=== PATIENT | female | born 1955 | race Caucasian/White ===

== ENCOUNTER 2022-12-05 01:36 | Emergency (ER) | payer OTHER ==
[~2022-12-05] VITALS: Ht 165.1 cm; Wt 68.9 kg
--- NOTE | 2022-12-05 02:00 | NUR ---
ER Dr. MANRIQUE at bedside examining patient.
--- NOTE | 2022-12-05 02:00 | NUR ---
PATIENT TAKING SENSIPAR AND HAVING BODY NUMBNESS/TINGLING X2 DAYS, HY Addendum: 12/05/22 at 0230 by [email or web address] X2 WEEKS*
--- NOTE | 2022-12-05 02:00 | NUR ---
PT BIB FROM HOME, AMBULATED TO BED 8. PT C/O TINGLING AND NUMBNESS TO FINGER TIPS DUE TO STARTING A NEW MEDICATION 2-3 WEEKS AGO. PT DENIES SOB OR CHEST PAIN. PT DENIES N/V/D, FEVER AND CHILLS. PT STATES FEELING "WEAK." NEW MEDICATION NAME CINACALET HCL 60MG BID. SAFETY PRECAUTIONS IN PLACE.
[2022-12-05 02:01] VITALS: BP_SYST 135; PULSE 78; RESP 16; TEMP 98; O2SAT 96
--- NOTE | 2022-12-05 02:01 | NUR ---
PATIENT PLACED IN ED BED 8, REPORT GIVEN TO BENJI Addendum: 12/05/22 at 0231 by [email or web address] REPORT GIVEN TO IFEANYI
[2022-12-05] MEDS ORDERED: NACL 0.9% 1,000 ML IV ONE (02:30)
[2022-12-05 02:41] LABS: BASOPHILS % (AUTO) 0.4 % (0.0-2.0); EOSINOPHILS # (AUTO) 0.1 K/uL (0.0-0.4); EOSINOPHILS % (AUTO) 0.8 % (0.0-4.0); HEMATOCRIT 36.9 % (36-48); HEMOGLOBIN 12.3 g/dL (12.0-16.0); LYMPHOCYTES # (AUTO) 1.6 K/uL (1.0-5.5); LYMPHOCYTES % (AUTO) 20.1 % (20.5-51.5); MEAN CORPUSCULAR HEMOGLOBIN 30 pg (27-31); MEAN CORPUSCULAR HGB CONC 33 % (32-36); MEAN CORPUSCULAR VOLUME 89 fL (79.0-98.0); MONOCYTES # (AUTO) 0.7 K/uL (0.0-1.0); MONOCYTES % (AUTO) 8.7 % (1.7-9.3); NEUTROPHILS # (AUTO) 5.5 K/uL (1.8-7.7); PLATELET COUNT (AUTO) 265 K/uL (130-430); RED BLOOD CELL COUNT(AUTO) 4.14 MIL/uL (4.2-6.2); RED CELL DISTRIBUTION WIDTH 13.9 % (9.0-15.0); WHITE BLOOD COUNT (AUTO) 7.8 K/uL (4.8-10.8)
[2022-12-05 03:13] LABS: ALANINE AMINOTRANSFERASE 34 U/L (12-78); ALBUMIN 3.8 g/dL (3.4-4.8); ANION GAP 10 (5-15); ASPARTATE AMINOTRANSFERASE 36 U/L (10-37); CHLORIDE 100 mmol/L (98-107); CREATININE 0.68 mg/dL (0.55-1.30); FREE T4 (FREE THYROXINE) 0.9 ng/dL (0.6-1.6); GFR AFRICAN AMERICAN 111 mL/min (>90); GLUCOSE 111 mg/dL (74-106); PHOSPHORUS 3.9 mg/dL (2.7-4.5); TOTAL BILIRUBIN 0.3 mg/dL (0.0-1.0); UREA NITROGEN, BLOOD 6 mg/dL (8-21)
[2022-12-05 03:16] LABS: CALCIUM 6.8 mg/dL (8.4-11.0)
[2022-12-05] MEDS ORDERED: MAGNESIUM SULFATE 50 ML IV ONE (03:30)
[2022-12-05] MEDS ORDERED: CALCIUM GLUCONATE 1 GM/10 ML VIAL IVP ONE (03:30)
--- NOTE | 2022-12-05 05:20 | NUR ---
Patient given written and verbal discharge instructions and verbalizes understanding. ER DR MANRIQUE discussed with patient the results and treatment provided. Patient in stable condition. ID arm band removed. IV catheter removed intact and dressing applied, no active bleeding. NO Rx given. Patient educated on pain management and to follow up with PMD. Pain Scale 0/10. Opportunity for questions provided and answered. Medication side effect fact sheet provided.
[2022-12-05 05:26] VITALS: BP_SYST 121; PULSE 66; RESP 21; TEMP 98; O2SAT 96
== END 2022-12-05 05:26 | disposition home or self-care (01) ==
LOC: SED 01:36
DX: R20.2 Paresthesia of skin (principal); E83.51 Hypocalcemia; R94.31 Abnormal electrocardiogram [ECG] [EKG]; R53.1 Weakness; R42 Dizziness and giddiness; E11.9 Type 2 diabetes mellitus without complications; I10 Essential (primary) hypertension; Z86.39 Personal history of other endocrine, nutritional and metabolic disease; Z79.899 Other long term (current) drug therapy
CPT/HCPCS: 80053; 84439; 83735; 84100; 84443; 85025; 84484; 36415; 93005; 71045; 99291; 96361; 96365; 96375; J0610; J3475; J7030